=== PATIENT | female | born 1990 | race Caucasian/White ===

== ENCOUNTER 2018-08-19 10:22 | Emergency (ER) | payer MEDICAID ==
[~2018-08-19] VITALS: Ht 160 cm; Wt 63.3 kg
[~2018-08-19 10:22] MED LIST: FERR325T18 PO; IBUP-1223 PO; IBUP-1484 PO; LEVO500T47 PO; OXYC-302 PO; OXYC5TAB2 PO; PREN1TAB60 PO; SENN-25 PO
[2018-08-19 10:25] VITALS: BP 113/60
--- NOTE | 2018-08-19 10:38 | NUR ---
PT BIB [facility] FOR BEING UNDER A LOT OF STRESS PER PT RESULTING IN CP WHILE BEING IN RECOVERY PROGRAM FOR METH USE. PT HAS HX OF SAME FOR YEARS AND PAIN IS CAUSED PER PT WHEN SHE IS UNDER INCREASED STRESS. PAIN INCREASES WITH BREATHING. PT DENIES RECENT TRAVEL. DR. PERDUE AT BEDSIDE.
== END 2018-08-19 12:31 | disposition home or self-care (01) ==
LOC: ED 10:42
DX: R07.2 Precordial pain (principal); F17.200 Nicotine dependence, unspecified, uncomplicated
CPT/HCPCS: 71045; 93005; 99283